=== PATIENT | female | born 1995 | race American Indian/Alaskan Native ===

== ENCOUNTER 2018-01-17 05:14 | Inpatient (IN) | payer OTHER ==
[2018-01-17] MEDS ORDERED: LACTATED RINGERS 1,000 ML ONE (05:57)
[2018-01-17 06:54] LABS: Basophils % (Auto) 0.2 % (0.0-1.8); Eosinophils % (Auto) 0.2 % (0.0-4.3); Hematocrit 30.8 % (30.3-42.9); Hemoglobin 10.2 gm/dl (10.1-14.3); Lymphocytes # (Auto) 1.7 K/mm3 (1.2-5.4); Lymphocytes % (Auto) 17.2 % (13.4-35.0); Mean Corpuscular HGB Conc 33 % (30-34); Mean Corpuscular Hemoglobin 28 pg (28-32); Mean Corpuscular Volume 83 fl (79-97); Monocytes # (Auto) 0.5 K/mm3 (0.0-0.8); Monocytes % (Auto) 4.7 % (0.0-7.3); Platelet Count 237 K/mm3 (140-440); Red Blood Count 3.69 M/mm3 (3.65-5.03)
[2018-01-17] MEDS ORDERED: NARCAN 0.4 MG/1 ML IV PRN (07:04)
[2018-01-17] MEDS ORDERED: ZOFRAN IV PRN ×2 (07:04→16:12)
[2018-01-17] MEDS ORDERED: STADOL IV PRN (07:04)
[2018-01-17] MEDS ORDERED: PHENERGAN PO PRN ×2 (07:04→16:12)
[2018-01-17] MEDS ORDERED: BRETHINE SUB-Q PRN (07:04)
[2018-01-17] MEDS ORDERED: XYLOCAINE 2% INFILTRATI ONE (07:04)
[2018-01-17] MEDS ORDERED: SUBLIMAZE IV PRN (07:04)
[2018-01-17] MEDS ORDERED: BRETHINE IVP PRN (07:04)
[2018-01-17] MEDS ORDERED: POLYCILLIN/NS 2 GM/100 ML 2 GM/100 ML BAG IV ONE (07:04)
[2018-01-17] MEDS ORDERED: ePHEDrine SULFATE IV PRN ×2 (07:04→08:49)
[2018-01-17 07:06] LABS: Bacteria,Urine 1+ /HPF (Negative); Bilirubin,Urine NEG (Negative); Blood,Urine SM (Negative); Color,Urine Yellow (Yellow); Mucus,Urine FEW /HPF; WBC,Urine > 182.0 /HPF (0.0-6.0)
[2018-01-17] MEDS: LACTATED RINGERS 1,000 ML IV SCH ×2 (07:30→09:00)
--- NOTE | 2018-01-17 07:43 | Ultrasound Report ---
ULTRASOUND BIOPHYSICAL PROFILE: History: well being Technique: Transabdominal ultrasound with Doppler interrogation. 2 - breathing movements 2 - movements 2 - posture and tone 2 - Qualitative amniotic fluid volume 8 - TOTAL SCORE OF POSSIBLE 8 Heart Rate (bpm) 139
--- NOTE | 2018-01-17 07:44 | Ultrasound Report ---
ULTRASOUND OB LIMITED History: well being Technique: Transabdominal ultrasound with Doppler interrogation. Gestation: Single Position: Cephalic Amniotic Fluid: Normal MARION = 7.9 cm Heart Rate: 126 BPM
[2018-01-17] MEDS ORDERED: PITOCin/NS 30 UNIT/500ML 30 UNITS/500 ML BAG IV SCH ×2 (08:00)
[2018-01-17] MEDS ORDERED: PITOCin/NS 20 UNIT/1000ML DRIP 20 UNITS/1,000 ML BAG IV SCH ×2 (08:00→16:12)
[2018-01-17] MEDS ORDERED: NARCAN 2 MG/2 ML IV PRN (08:49)
--- NOTE | 2018-01-17 08:49 | Anesthesia Consultation ---
Anesthesia Consult and Med Hx Date of service: 01/17/18 - Airway Anesthetic Teeth Evaluation: Good ROM Head & Neck: Adequate Mental/Hyoid Distance: Adequate Mallampati Class: Class II Intubation Access Assessment: Good - Pulmonary Exam CTA: Yes - Cardiac Exam Cardiac Exam: No Murmur - Pre-Operative Health Status ASA Pre-Surgery Classification: ASA2 Proposed Anesthetic Plan: Epidural - Pulmonary Hx Asthma: No COPD: No Hx Pneumonia: No - Cardiovascular System Hx Hypertension: No - Central Nervous System Hx Seizures: No Hx Psychiatric Problems: No - Endocrine Hx Renal Disease: No Hx End Stage Renal Disease: No Hx Hypothyroidism: No Hx Hyperthyroidism: No - Hematic Hx Anemia: Yes Hx Sickle Cell Disease: No - Other Systems Hx Alcohol Use: No
[2018-01-17] MEDS ORDERED: fentaNYL-BUPIV 2 MCG/ML-0.125% 200 MCG/100 ML BAG EPIDURAL SCH (09:00)
--- NOTE | 2018-01-17 10:02 | History and Physical Report ---
History of Present Illness Date of examination: 01/17/18 Date of admission: 01/17/18 05:15 Chief complaint: contractions History of present illness: Pt is a 22 year old -English LUIZ [birth year] who presents with contractions and advanced cervical dilation. While being evaluated she experienced SROM. She has had care in [place], [place] but records are unavailable at this time. Pt presents with vaginal culture indicating GBS positive status. She reports that her was uncomplicated. Past History Past Medical History: no pertinent history Past Surgical History: no surgical history Social history: no significant social history - Obstetrical History Expected Date of Delivery: 01/23/18 Actual Gestation: 39 Week(s) 1 Day(s) : 2 Para: 1 Hx # Term Pregnancies: 1 Number of Pregnancies: 0 Spontaneous Abortions: 0 Induced : 0 Number of Living Children: 1 Medications and Allergies Allergies Allergy/AdvReac Type Severity Reaction Status Date / Time No Known Allergies Allergy Unverified 01/17/18 05:30 Home Medications Medication Instructions Recorded Confirmed Last Taken Type Pnv 29-1 Tablet 1 tab PO DAILY 01/17/18 01/17/18 2 Days Ago History ~01/15/18 Active Meds: Active Medications Butorphanol Tartrate (Stadol) 1 mg IV Q2H PRN PRN Reason: Pain, Moderate (4-6) Ephedrine Sulfate (Ephedrine Sulfate) 10 mg IV Q2M PRN PRN Reason: Hypotension Fentanyl (Sublimaze) 100 mcg IV Q2H PRN PRN Reason: Labor Pain Ampicillin Sodium (Ampicillin/Ns 1 Gm/50 Ml) 1 gm in 50 mls @ 100 mls/hr IV Q4H ANGELINA; Protocol Lactated Ringer's (Lactated Ringers) 1,000 mls @ 125 mls/hr IV DIRECT ANGELINA Last Admin: 01/17/18 09:00 Dose: 125 mls/hr Oxytocin/Sodium Chloride (Pitocin/Ns 20 Unit/1000ml Drip) 20 units in 1,000 mls @ 125 mls/hr IV DIRECT ANGELINA Oxytocin/Sodium Chloride (Pitocin/Ns 30 Unit/500ml) 30 units in 500 mls @ 1 mls /hr IV TITR ANGELINA; Protocol Fentanyl/Bupivacaine/Sodium Chlor (Fentanyl-Bupiv 2 Mcg/Ml-0.125%) 200 mcg in 100 mls @ 12 mls/hr EPIDURAL TITR ANGELINA; Protocol Last Admin: 01/17/18 09:18 Dose: 12 mls/hr Mineral Oil (Mineral Oil) 30 ml PO QHS PRN PRN Reason: Constipation Naloxone HCl (Narcan 0.4 Mg/1 Ml) 0.1 mg IV Q2MIN PRN PRN Reason: Res Rate </= 8 or 02 SAT < 92% Naloxone HCl (Narcan 2 Mg/2 Ml) 0.2 mg IV Q5M PRN PRN Reason: Respiratory sedation Ondansetron HCl (Zofran) 4 mg IV Q8H PRN PRN Reason: Nausea And Vomiting Promethazine HCl (Phenergan) 25 mg PO Q6H PRN PRN Reason: Nausea And Vomiting Terbutaline Sulfate (Brethine) 0.25 mg SUB-Q ONCE PRN PRN Reason: Hyperstimulation/Hypertonicity Terbutaline Sulfate (Brethine) 0.25 mg IVP ONCE PRN PRN Reason: Hyperstimulation/Hypertonicity Review of Systems All systems: negative - Vital Signs Vital signs: Vital Signs Temp Pulse Resp BP 98.4 F 95 H 20 131/80 01/17/18 05:40 01/17/18 05:40 01/17/18 05:40 01/17/18 05:40 Temp Pulse Resp BP Pulse Ox 98.5 F 95 H 16 131/80 01/17/18 08:56 01/17/18 05:40 01/17/18 08:56 01/17/18 05:40 - Physical Exam Breasts: Positive: deferred Cardiovascular: Regular rate Lungs: Positive: Clear to auscultation Abdomen: Positive: soft (gravid ) Extremities: Positive: normal Results Result Diagrams: 01/17/18 06:07 Abnormal lab results 01/17/18 01/17/18 Range/Units 06:07 06:07 RDW 16.0 H (13.2-15.2) % Seg Neutrophils % 77.7 H (40.0-70.0) % Seg Neutrophils # 7.9 H (1.8-7.7) K/mm3 Urine WBC (Auto) > 182.0 H (0.0-6.0) /HPF All other labs normal. Assessment and Plan A: IUP at 39w1d SROM Latent Labor GBS Positive No care P: Admit to labor and delivery. GBS prophylaxis Pitocin augmentation. Monitor maternal and status.
[2018-01-17] MEDS ORDERED: AMPICILLIN/NS 1 GM/50 ML 1 GM/50 ML BAG IV SCH (11:00)
[2018-01-17 11:07] LABS: Rubella IgG Antibody Immune (Immune)
--- NOTE | 2018-01-17 11:18 | Event Note ---
Date: 01/17/18 Pt comfortable with epidural. FHTs: Category II tracing. SVE: 80/-1. + bloody show. IUPC placed. Continue routine intrapartum management. Closely monitor maternal and status.
[2018-01-17 11:25] LABS: Hepatitis C Virus Antibody Non-Reactive (NonReactive)
--- NOTE | 2018-01-17 13:03 | Procedure Note ---
OB Delivery Note - Delivery Date of Delivery: 01/17/18 Surgeon: RAFAELA CHRISTIANSON Estimated blood loss: 300cc - Vaginal Delivery presentation: vertex Delivery position: OA Intrapartum events: PROM->1hr before delivery, mult.variable deceleratio Delivery induction: none Delivery augmentation: pitocin Delivery monitor: external FHT, internal uterine Route of delivery: Delivery placenta: spontaneous Delivery cord: 3 umbilical vessels Episiotomy: none Delivery laceration: vaginal side wall Anesthesia: epidural Delivery comments: Pt progressed to complete/complete/+1 and pushed to deliver a viable female over intact perineum under epidural anesthesia via . Head delivered in SHAE position quickly followed by shoulders and body. placed on maternal abdomen and bulb suctioned. Cord clamped and cut and handed to nurse in attendance. Cord blood collected. Placenta delivered spontaneously (3VC). Vagina and perineum explored. Left vaginal abrasion noted to be hemostatic. EBL 300 mL. - Infant A at 1 minute: 8 at 5 minutes: 9 Infant Gender: Female (3211g (7lb 1 oz) @ 12:46 pm)
[2018-01-17] MEDS ORDERED: MOTRIN PO NR (13:56)
[2018-01-17] MEDS ORDERED: SODIUM CHLORIDE FLUSH SYRINGE 10 ML IV NR (16:12)
[2018-01-17] MEDS ORDERED: TUCKS PAD TP PRN (16:12)
[2018-01-17] MEDS ORDERED: LANSINOH TP PRN (16:12)
[2018-01-17] MEDS ORDERED: BENADRYL PO PRN (16:12)
[2018-01-17] MEDS ORDERED: NORCO 5/325 PO PRN (16:12)
[2018-01-17] MEDS ORDERED: PHENERGAN PR PRN (16:12)
[2018-01-17] MEDS ORDERED: MILK OF MAGNESIA PO PRN (16:12)
[2018-01-17] MEDS ORDERED: TYLENOL PO PRN (16:12)
[2018-01-17] MEDS ORDERED: DERMOPLAST TP PRN (16:12)
[2018-01-17] MEDS ORDERED: DULCOLAX PR PRN (16:12)
[2018-01-17 21:48] LABS: Bilirubin,Urine NEG (Negative); Blood,Urine LG (Negative); Color,Urine Red (Yellow); Mucus,Urine FEW /HPF; Urobilinogen,Urine < 2.0 mg/dL (<2.0)
[2018-01-17 21:54] LABS: Amphetamine Screen,Urine PRESUMPTIVE NEGATIVE; Benzodiazepines Screen,Urine PRESUMPTIVE NEGATIVE; Cannabinoid Screen,Urine PRESUMPTIVE NEGATIVE; Cocaine Screen,Urine PRESUMPTIVE NEGATIVE; Methadone Screen,Urine PRESUMPTIVE NEGATIVE; Opiate Screen,Urine PRESUMPTIVE NEGATIVE
[2018-01-17] MEDS ORDERED: FEOSOL PO SCH (22:00)
[2018-01-17] MEDS ORDERED: MINERAL OIL PO PRN (22:00)
[2018-01-17] MEDS: MOTRIN PO SCH (22:30)
[2018-01-18] MEDS: MOTRIN PO SCH ×2 (04:42→09:39)
[2018-01-18 05:36] LABS: Hemoglobin 8.9 gm/dl (10.1-14.3)
[2018-01-18] MEDS ORDERED: BOOSTRIX IM ONE (06:00)
--- NOTE | 2018-01-18 08:43 | Progress Note ---
Assessment and Plan - Patient Problems (1) Vaginal delivery Current Visit: Yes Status: Acute Plan to address problem: patient doing well discharge home tomorrow with Subjective - Subjective Date of service: 01/18/18 Interval history: Patient without complaints. Pain well controlled Patient reports: appetite normal, voiding normally, pain well controlled [place]: doing well Objective - Vital Signs Latest vital signs: Vital Signs Temp Pulse Resp BP BP Pulse Ox 01/18/18 00:30 98.2 F 81 18 126/76 99 01/17/18 20:40 98.1 F 88 18 99/62 98 01/17/18 17:00 97.4 F L 72 18 146/83 100 01/17/18 15:45 98.6 F 80 18 136/66 100 01/17/18 08:56 98.5 F 16 Intake and Output 01/17/18 01/18/18 01/18/18 22:59 06:59 14:59 Intake Total 600 480 Output Total 1000 700 Balance -400 -220 Intake: Oral 600 480 Output: Urine 1000 700 Indwelling Catheter 600 Void 400 700 Other: Total, Intake Amount 240 240 Total, Output Amount 400 400 # Voids Indwelling Catheter 1 - Exam Uterus: Present: normal, firm - Labs Labs: Abnormal lab results 01/17/18 01/18/18 Range/Units 21:00 05:14 Hgb 8.9 L (10.1-14.3) gm/dl Hct 27.0 L (30.3-42.9) % Urine WBC (Auto) 49.0 H (0.0-6.0) /HPF
--- NOTE | 2018-01-18 08:46 | Discharge Summary ---
Providers - Providers Date of Admission: 01/17/18 05:15 Date of discharge: 01/19/18 Attending physician: ALFRED VALLE MD 01/17/18 16:12 Consult to Supervisor Production Managing [CONS] Routine Reason For Exam: assistance with , SNS Primary care physician: ALFRED VALLE MD Hospitalization Reason for admission: active labor Delivery: Discharge diagnosis: IUP at term delivered baby: female Hospital course: Patient presented in active labor and had a . Did not receive adequate GBS coverage. Patient and observed for 48 hours. uncomplicated Condition at discharge: Good Disposition: DC-01 TO HOME OR SELFCARE - Discharge Diagnoses (1) Vaginal delivery Status: Acute Plan - Discharge Medications Prescriptions: HYDROcodone/APAP 5-325 [[place] 5/325] 1 each PO Q6HR PRN #30 tablet PRN Reason: Pain Ibuprofen [Motrin] 800 mg PO Q8HR PRN #60 tablet PRN Reason: Pain - Provider Discharge Summary Activity: no sex for 6 weeks, no heavy lifting 4 weeks, no strenuous exercise Diet: routine Instructions: routine Additional instructions: [] Smoking cessation referral if applicable(refer to patient education folder for contact #) [] Refer to [facility] Book[facility] Call your doctor immediately for: * Fever > 100.5 * Heavy vaginal bleeding ( >1 pad per hour) * Severe persistent headache * Shortness of breath * Reddened, hot, painful area to leg or breast * schedule visit in 4 weeks - Follow up plan
[2018-01-18] MEDS ORDERED: PRENATAL VITAMIN PO SCH (10:00)
[2018-01-18] MEDS ORDERED: cefTRIAXone 1 GM in NACL 0.9% 20 ML IV NR (10:00)
[2018-01-18] MEDS ORDERED: M-M-R II VACCINE SUB-Q ONE (13:05)
[2018-01-19 08:06] VITALS: BP 126/67
== END 2018-01-19 10:15 | disposition home or self-care (01) | DRG 775 ==
LOC: TRG 05:14 → LD 05:15 → TRG 05:16 → OB 15:50
PROVIDERS: ADMIT Obstetrics & Gynecology; ATTEND Obstetrics & Gynecology
PROC: 10E0XZZ Delivery of Products of Conception, External Approach (ICD-10-PCS; principal; 2018-01-17)
PROC: 3E0R3BZ Introduction of Anesthetic Agent into Spinal Canal, Percutaneous Approach (ICD-10-PCS; 2018-01-17)
PROC: 00HU33Z Insertion of Infusion Device into Spinal Canal, Percutaneous Approach (ICD-10-PCS; 2018-01-17)
PROC: 3E0234Z Introduction of Serum, Toxoid and Vaccine into Muscle, Percutaneous Approach (ICD-10-PCS; 2018-01-18)
DX: O99.824 Streptococcus B carrier state complicating childbirth (principal); Z3A.39 39 weeks gestation of pregnancy; Z37.0 Single live birth; O09.33 Supervision of pregnancy with insufficient antenatal care, third trimester; O76 Abnormality in fetal heart rate and rhythm complicating labor and delivery; O42.02 Full-term premature rupture of membranes, onset of labor within 24 hours of rupture; O71.4 Obstetric high vaginal laceration alone; Z23 Encounter for immunization
CPT/HCPCS: 36415; 76815; 76819; 80307; 81001; 85014; 85018; 85025; 85660; 86592; 86706; 86762; 86803; 86850; 86900; 86901; 87086; 87806; 88307; J0290; J0696; J2590; J7120